=== PATIENT | female | born 1960 | race Caucasian/White ===

== ENCOUNTER 2020-04-19 12:16 | Emergency (ER) | payer OTHER ==
[~2020-04-19] VITALS: Ht 154.9 cm; Wt 60.0 kg
[~2020-04-19 12:16] MED LIST: ALEVE220 M2 PO; CLINDAMYCIN300 M1 PO; DOXYCYC MONO100 M1 OR; ECOTRIN LOW STR81 MG PO; HYDROCODONE/ACE1 TAB PO; LEVAQUIN750 MG PO; LORTAB5 PO; MELOXICAM7.5 MG PO; NAPROSYN375 MG PO; NO MEDS; PREDNISONE50 MG OR; PROVENTIL INH17 GM IN; TRAMADOL HCL50 MG PO
[2020-04-19 14:10] VITALS: BP 175/82
== END 2020-04-19 14:10 | disposition home or self-care (01) | DRG 552 ==
LOC: ED 12:16
DX: S16.1XXA Strain of muscle, fascia and tendon at neck level, initial encounter (principal); M54.6 Pain in thoracic spine; F17.200 Nicotine dependence, unspecified, uncomplicated; V43.63XA Car passenger injured in collision with pick-up truck in traffic accident, initial encounter

== ENCOUNTER 2021-07-29 14:40 | Emergency (ER) | payer OTHER ==
[2021-07-29] VITALS (15 sets, daily range): BP systolic 115–150; BP diastolic 48–110
[~2021-07-29] VITALS: Ht 157.5 cm; Wt 59.2 kg
[2021-07-29 15:17] LABS: HEMOGLOBIN 15.6 g/dl (12.0-16.0); IMMATURE GRANULOCYTES 0.1 % (0.0-5.0); MEAN CORPUSCULAR HGB CONC 31.6 g/dL CAL (32.0-36.0); NEUT# 6.69 thou/uL (2.00-7.15); RED BLOOD COUNT 5.03 mill/uL (4.20-5.60); RED CELL DISTRI WIDTH 12.6 % (11.5-15.5)
[2021-07-29 15:28] LABS: HEMATOCRIT 49.3 % (37.0-47.0)
[2021-07-29 15:32] LABS: URINE BILIRUBIN - DIPSTICK NEGATIVE (NEGATIVE); URINE BLOOD DIPSTICK MODERATE (NEGATIVE); URINE COLOR YELLOW; URINE GLUCOSE - DIPSTICK NEGATIVE (NEGATIVE); URINE KETONE NEGATIVE (NEGATIVE); URINE LEUK ESTERASE NEGATIVE (NEGATIVE); URINE PROTEIN - DIPSTICK NEGATIVE (NEG-TRACE); URINE SPECIFIC GRAVITY 1.015; URINE UROBILINOGEN - DIPSTICK 0.2 E.U./dL (0.2)
[2021-07-29 15:34] LABS: INTERNATIONAL NORMALIZED RATIO 0.9 RATIO (0.7-1.3); PROTHROMBIN TIME 9.3 SECONDS (9.0-12.5)
[2021-07-29 15:35] LABS: URINE NITRITE - DIPSTICK NEGATIVE (Negative)
[2021-07-29 15:40] LABS: URINE SQUAMOUS EPITHELIAL CELL FEW EPI/hpf (0-FEW); URINE WBC 0-2 WBC/hpf (0-5)
[2021-07-29 15:41] LABS: ALBUMIN 4.1 g/dL (3.2-5.0); ALKALINE PHOSPHATASE 97 u/l (38-126); ANION GAP 11 (6-22 (CALC)); BILIRUBIN, TOTAL 0.4 mg/dL (0.0-1.4); BUN 11 mg/dL (7-17); BUN/CREATININE RATIO 16 (12-20 (CALC)); CARBON DIOXIDE 28 mmol/l (22-30); CHLORIDE 103 mmol/l (95-108); CREATININE 0.7 mg/dL (0.5-1.0); GFR > 60 ML/MIN (>=60 (CALC)); GFR FOR AFR.AMER. > 60 ML/MIN (>=60 (CALC)); POTASSIUM 3.7 mmol/l (3.5-5.1); SGOT/AST 21 u/l (14-36); SODIUM 139 mmol/l (137-146); TOTAL PROTEIN 7.1 g/dL (6.3-8.2)
== END 2021-07-29 18:21 | disposition short-term general hospital (02) | DRG 66 ==
LOC: ED 14:40
PROVIDERS: Family Medicine
DX: I60.9 Nontraumatic subarachnoid hemorrhage, unspecified (principal); Z72.0 Tobacco use; R00.0 Tachycardia, unspecified
CPT/HCPCS: J0131; J0133; J1953

== ENCOUNTER 2021-10-28 10:55 | Day surgery (SDC) | payer OTHER ==
[~2021-10-28] VITALS: Ht 157.5 cm; Wt 59.9 kg
[~2021-10-28 10:55] MED LIST changes: +LIPITOR20 M1 PO; +LOSARTAN POTASS25 MG PO
[2021-10-28 14:25] VITALS: BP 146/74
== END 2021-10-28 14:00 | disposition home or self-care (01) | DRG 694 ==
LOC: ORM 10:55
PROVIDERS: ATTEND Urology
PROC: BT1DYZZ Fluoroscopy of Right Kidney, Ureter and Bladder using Other Contrast (ICD-10-PCS; principal; 2021-10-28)
DX: N13.30 Unspecified hydronephrosis (principal); R31.29 Other microscopic hematuria; F17.210 Nicotine dependence, cigarettes, uncomplicated; Z86.73 Personal history of transient ischemic attack (TIA), and cerebral infarction without residual deficits
CPT/HCPCS: C1769; J1956; Q9967